=== PATIENT | female | born 1975 | race Caucasian/White ===

== ENCOUNTER 2018-06-18 15:44 | Outpatient (CLI) | payer OTHER | END 2018-06-18 17:44 | disposition home or self-care (01) | LOC: LAB 15:44 | DX: E05.00 Thyrotoxicosis with diffuse goiter without thyrotoxic crisis or storm (principal); E05.90 Thyrotoxicosis, unspecified without thyrotoxic crisis or storm | CPT/HCPCS: 36415; 84436; 84439; 84443; 84481 ==